=== PATIENT | female | born 1965 | race Two or more races ===

== ENCOUNTER 2025-05-04 11:45 | Inpatient (IN) | payer OTHER ==
[~2025-05-04] VITALS: Ht 213.4 cm; Wt 60.8 kg
[2025-05-04] MEDS ORDERED: EZALLOR SPRINKLE5 MG PO (13:16)
[2025-05-04] MEDS ORDERED: COZAAR25 MG PO (13:16)
[2025-05-04] MEDS ORDERED: ZETIA10 MG PO (13:16)
[2025-05-04] MEDS ORDERED: PEPCID AC20 MG (13:17)
[2025-05-17] MEDS ORDERED: SUGAMMADEX SODIUM 200 MG/2 ML VIAL IV ONE (11:32)
[2025-05-17] MEDS ORDERED: RINGERS SOLUTION,LACTATED 1,000 ML IV SCH (12:15)
[2025-05-17] MEDS ORDERED: MORPHINE SULFATE 4 MG/ML CARTRIDGE IV PRN (12:15)
[2025-05-17] MEDS ORDERED: ONDANSETRON HCL 2 MG/ML VIAL IV PRN (12:15)
[2025-05-17] MEDS ORDERED: OxyCODONE HCL 5 MG TABLET (ROXICODONE) PO PRN (12:15)
[2025-05-17] MEDS ORDERED: HYOSCYAMINE SULFATE 0.125 MG TAB.SUBL SL SCH (13:00)
[2025-05-17] MEDS ORDERED: SIMETHICONE 125 MG CAPSULE PO SCH (13:00)
[2025-05-17] MEDS ORDERED: ONDANSETRON HCL 2 MG/ML VIAL ONE (13:59)
[2025-05-17] MEDS ORDERED: ACETAMINOPHEN 500 MG GEL..CAP PO SCH (14:00)
[2025-05-17] MEDS ORDERED: ENALAPRILAT DIHYDRATE 1.25 MG/ML VIAL IV PRN (15:00)
[2025-05-17] MEDS ORDERED: METRONIDAZOLE/SODIUM CHLORIDE 500 MG/100 ML PIGGYBACK IV ONE ×2 (15:00)
[2025-05-17] MEDS ORDERED: CEFTRIAXONE SODIUM 2,000 MG VIAL IV ONE ×2 (15:00)
[2025-05-17 15:12] LABS: BASO % 0.1 % (0.1-1.2); EOS # 0.00 (0.04-0.54); EOS % 0.0 % (0.7-7.0); LYMPH # 1.12 (1.18-3.74); LYMPH % 10.2 % (19.3-53.1); MEAN PLATELET VOLUME 10.70 fl (9.4-12.4); MONO # 0.56 (0.24-0.82); MONO % 5.1 % (4.7-12.5); NEUT # 9.31 (1.56-6.13); NEUT % 84.4 % (34.0-71.1); RED CELL DISTRIBUTION WIDTH 12.5 % (11.6-14.4)
[2025-05-17 16:00] VITALS: BP 159/69; O2SAT 100
[2025-05-17] MEDS ORDERED: SIMETHICONE 125 MG CAPSULE PO ONE (16:09)
[2025-05-17] MEDS ORDERED: HYOSCYAMINE SULFATE 0.125 MG TAB.SUBL ONE (16:09)
[2025-05-17] MEDS ORDERED: ACETAMINOPHEN 500 MG GEL..CAP PO ONE (16:10)
[2025-05-17] MEDS ORDERED: GABAPENTIN 300 MG CAPSULE PO ONE (16:10)
[2025-05-17] MEDS ORDERED: METOCLOPRAMIDE HCL 5 MG/ML VIAL ONE (16:11)
[2025-05-17] MEDS ORDERED: METOCLOPRAMIDE HCL 5 MG/ML VIAL IV SCH (17:00)
[2025-05-17] MEDS ORDERED: GABAPENTIN 300 MG CAPSULE PO SCH (17:00)
[2025-05-17] MEDS ORDERED: ALBUTEROL SULFATE 3 ML/2.5 MG AMPUL.NEB IH SCH (18:00)
[2025-05-17] MEDS ORDERED: CELECOXIB 200 MG CAPSULE PO SCH (21:00)
[2025-05-17] MEDS ORDERED: FAMOTIDINE/PF 20 MG/2 ML VIAL IV PUSH SCH (21:00)
[2025-05-18 00:30] VITALS: BP 111/64; O2SAT 100
[2025-05-18 06:17] LABS: BASO % 0.2 % (0.1-1.2); EOS # 0.03 (0.04-0.54); EOS % 0.2 % (0.7-7.0); LYMPH # 1.43 (1.18-3.74); LYMPH % 7.8 % (19.3-53.1); MEAN PLATELET VOLUME 10.70 fl (9.4-12.4); MONO # 1.21 (0.24-0.82); MONO % 6.6 % (4.7-12.5); NEUT # 15.49 (1.56-6.13); NEUT % 84.7 % (34.0-71.1); RED CELL DISTRIBUTION WIDTH 12.4 % (11.6-14.4)
[2025-05-18 07:10] LABS: BUN CREA RATIO 12.0 (7.0-25.0); CREATININE SERUM 0.57 mg/dL (0.55-1.02); GFR 108.19; GLUCOSE FASTING 128.0 mg/dL (65-100); OSMOLALITY SERUM 277.0 MOSM/KG (275-295)
[2025-05-18 08:34] VITALS: BP 123/63; O2SAT 99
[2025-05-18] MEDS ORDERED: LACTOBACILLUS ACIDOPHILUS 1 CAP CAP PO SCH (09:00)
[2025-05-18] MEDS ORDERED: LOSARTAN POTASSIUM 25 MG TABLET PO SCH (09:00)
[2025-05-18] MEDS ORDERED: CIPROFLOXACIN IN 5 % DEXTROSE 200 ML IV SCH (09:00)
[2025-05-18 16:53] VITALS: BP 125/74; O2SAT 99
[2025-05-18] MEDS ORDERED: ROSUVASTATIN CALCIUM 10 MG TABLET PO SCH (17:00)
[2025-05-18] MEDS ORDERED: ENOXAPARIN SODIUM 40 MG/0.4 ML SYRINGE SUBCUTANEO SCH (17:00)
[2025-05-19 01:03] VITALS: BP 127/80; O2SAT 98
[2025-05-19 07:30] VITALS: BP 122/75; O2SAT 97
[2025-05-19 07:37] LABS: BASO % 0.2 % (0.1-1.2); EOS # 0.03 (0.04-0.54); EOS % 0.2 % (0.7-7.0); LYMPH # 1.22 (1.18-3.74); LYMPH % 9.7 % (19.3-53.1); MEAN PLATELET VOLUME 10.80 fl (9.4-12.4); MONO # 0.92 (0.24-0.82); MONO % 7.3 % (4.7-12.5); NEUT # 10.34 (1.56-6.13); NEUT % 82.0 % (34.0-71.1); RED CELL DISTRIBUTION WIDTH 12.9 % (11.6-14.4)
[2025-05-19 08:25] LABS: BUN CREA RATIO 16.0 (7.0-25.0); CREATININE SERUM 0.67 mg/dL (0.55-1.02); GFR 89.78; GLUCOSE FASTING 119.0 mg/dL (65-100); OSMOLALITY SERUM 289.0 MOSM/KG (275-295)
[2025-05-19] MEDS ORDERED: GABAPENTIN 300 MG CAPSULE PO PRN (08:36)
[2025-05-19] MEDS ORDERED: ENOXAPARIN SODIUM 40 MG/0.4 ML SYRINGE SUBCUTANEO SCH (09:00)
[2025-05-19] MEDS ORDERED: POTASSIUM PHOS,M-BASIC-D-BASIC 15 MM in 0.9 % SODIUM CHLORIDE 250 ML IV ONE (09:00)
[2025-05-19] MEDS ORDERED: POTASSIUM CHLORIDE 20MEQ/100ML H2O PB IV NR (12:00)
[2025-05-19 18:37] VITALS: BP 117/68; O2SAT 98
[2025-05-19] MEDS ORDERED: CHOLESTYRAMINE/ASPARTAME LIGHT 4 G/PKT PACKET PO PRN (23:45)
[2025-05-20 00:30] VITALS: BP 130/77; O2SAT 100
[2025-05-20 08:47] VITALS: BP 141/85; O2SAT 98
[2025-05-20] MEDS ORDERED: TYLENOL ARTHRI650 MG PO (13:33)
[2025-05-20] MEDS ORDERED: NEURONTIN300 MG PO (13:33)
[2025-05-20] MEDS ORDERED: INTESTINEX680 M1 PO (13:33)
== END 2025-05-20 14:55 | disposition home or self-care (01) | DRG 331 ==
LOC: SURG 05-17 07:00 → O/R 05-17 07:00 → SURH 05-17 07:00 → SURG 05-17 11:45 → SURH 05-17 12:16
PROVIDERS: Internal Medicine Geriatric Medicine; ADMIT Surgery; ATTEND Surgery
PROC: 0DJD8ZZ Inspection of Lower Intestinal Tract, Via Natural or Artificial Opening Endoscopic (ICD-10-PCS; 2025-05-17)
PROC: 0DTG4ZZ Resection of Left Large Intestine, Percutaneous Endoscopic Approach (ICD-10-PCS; principal; 2025-05-17 07:00)
DX: C18.5 Malignant neoplasm of splenic flexure (principal)